=== PATIENT | male | born 1990 | race Caucasian/White ===

== ENCOUNTER 2022-12-27 18:24 | Emergency (ER) | payer OTHER ==
[2022-12-27 18:30] VITALS: BMI 33.6
[2022-12-27] MEDS ORDERED: KETOROLAC TROMETHAMINE 30 MG/1 ML VIAL IM ONE (19:37)
[2022-12-27] MEDS ORDERED: LIDOCAINE 5% TOPICAL PATCH TP ONE (19:37)
[2022-12-27] MEDS ORDERED: LIDOCAINE 5% TOPICAL PATCH ONE (19:54)
[2022-12-27] MEDS ORDERED: KETOROLAC TROMETHAMINE 30 MG/1 ML VIAL ONE (19:54)
[2022-12-27] MEDS ORDERED: LIDOCAINE PATCH REMOVAL MC SCH (22:00)
[2022-12-28 01:54] VITALS: BP 128/83; PULSE 54; RESP 15; TEMP 97.5
== END 2022-12-28 02:08 | disposition home or self-care (01) ==
LOC: JER 18:24 → JERFT 18:24 → JER 12-28 02:08
PROC: 3E0233Z Introduction of Anti-inflammatory into Muscle, Percutaneous Approach (ICD-10-PCS; principal; 2022-12-27)
DX: R51.9 Headache, unspecified (principal); M54.50 Low back pain, unspecified; M25.551 Pain in right hip; M79.604 Pain in right leg; R42 Dizziness and giddiness; R11.0 Nausea; V43.02XA Car driver injured in collision with other type car in nontraffic accident, initial encounter; Y92.481 Parking lot as the place of occurrence of the external cause
CPT/HCPCS: 72131-TC; 99284-25

== ENCOUNTER 2023-07-11 09:10 | Emergency (ER) | payer SELFPAY ==
[2023-07-11 09:14] VITALS: BP 123/87; PULSE 96; RESP 18; TEMP 98; BMI 28.0
[2023-07-11] MEDS ORDERED: IBUPROFEN 600 MG TABLET (FP) PO ONE (09:36)
[2023-07-11] MEDS ORDERED: CEPHALEXIN MONOHYDRATE 500 MG CAPSULE (UD) ONE (09:36)
[2023-07-11] MEDS ORDERED: ACETAMINOPHEN 500 MG TABLET (FP) ONE (09:36)
[2023-07-11] MEDS: IBUPROFEN 600 MG TABLET (FP) PO ONE (09:40)
[2023-07-11] MEDS: ACETAMINOPHEN 500 MG TABLET (FP) PO ONE (09:41)
[2023-07-11] MEDS: CEPHALEXIN MONOHYDRATE 500 MG CAPSULE (UD) PO ONE (09:41)
== END 2023-07-11 10:14 | disposition home or self-care (01) ==
LOC: JER 09:10 → JERFT 09:10
DX: L03.012 Cellulitis of left finger (principal); R22.32 Localized swelling, mass and lump, left upper limb
CPT/HCPCS: 73140-TC-LT-FY; 99283-25

== ENCOUNTER 2023-09-04 13:06 | Emergency (ER) | payer BC ==
[2023-09-04 13:11] VITALS: BP 106/66; PULSE 91; RESP 20; TEMP 97.7; BMI 29.7
== END 2023-09-04 13:30 | disposition home or self-care (01) ==
LOC: JERFT 13:06
DX: R50.9 Fever, unspecified (principal); R05.9 Cough, unspecified; R09.81 Nasal congestion; J06.9 Acute upper respiratory infection, unspecified; Z20.822 Contact with and (suspected) exposure to COVID-19
CPT/HCPCS: 0241U-QW; 99283-25